=== PATIENT | male | born 1945 | race Caucasian/White ===

== ENCOUNTER → 2017-04-30 | Day surgery (SDC) | payer MEDICARE, OTHER ==
[2017-04-29 12:04] LABS: BASOPHILS % 0.6 % (0.0-1.0); EOSINOPHILS # (AUTO) 0.2 (0.0-0.4); EOSINOPHILS % 2.4 % (0.0-6.0); HEMATOCRIT 41.9 % (38.2-49.6); HEMOGLOBIN 13.7 g/dL (14.0-18.0); LYMPHOCYTES % 28.6 % (18.0-39.1); MEAN CORPUSCULAR HEMOGLOBIN 31.7 pg (28-32); MEAN CORPUSCULAR HGB CONC 32.7 g/dL (31-35); MONOCYTES # (AUTO) 0.6 (0.2-0.8); MONOCYTES % 9.1 % (4.4-11.3); NEUTROPHILS # (AUTO) 4.2 (2.1-6.9); PLATELET COUNT 263 x10e3/uL (140-360); RED BLOOD COUNT 4.32 x10e6/uL (4.3-5.7); RED CELL DISTRIBUTION WIDTH 13.8 % (11.7-14.4)
[~2017-04-30] MED LIST: AMLODIPINE BESYL5 MG PO; ASPIRIN81 M1 PO; CENTRUM SILVER1 EAC3 PO; CIPRO500 MG PO; DEXAMETHASONE SOD PHOS INJ 4 MG/ML VIAL ONE; DICLOFENAC SODI75 MG PO; FENTANYL CITRATE/PF 100MCG/2 ML INJ ONE; FLAGYL250 MG PO; FLOMAX0.4 MG PO; LEVAQUIN250 MG PO; LEVOFLOXACIN 500MG/D5W 100ML 100 ML IV ONE; LIDOCAINE HCL 2% LOCAL INJ 5 ML SDV VIAL INJ ONE; LOSARTAN POTAS100 MG PO; LOSARTAN-HCTZ1 EAC1 PO; LOW DOSE ASPIRI81 MG PO; MIDAZOLAM HCL 2 MG/2 ML VIAL ONE; NORCO 10MG-325MG1 EA PO; ONDANSETRON HCL INJ 2 MG/ML VIAL ONE; PRESERVISION A1 EACH PO; PRESERVISION T1 EACH PO; PROPOFOL IV EMULSION 10 MG/ML 20 ML VIAL ONE; SEVOFLURANE INHAL SOLN 250 ML PEN BTL ONE; SIMVAST PO; SIMVASTATIN10 MG PO; SIMVASTATIN20 MG PO; TAMSULOSIN HCL0.4 MG PO; UROCIT-K10 MEQ PO; UROCIT-K5 MEQ; XARELTO10 MG PO; Z.0.NORVASC5 MG PO
--- NOTE | 2017-04-30 09:57 | Diagnostic Imaging Report ---
PROCEDURE:X-RAY ABDOMEN - KUB COMPARISON:[facility], DX, ABDOMEN-1VIEW (KUB), 02/23/[address] abdomen and pelvis dated 12/15/2016. INDICATIONS:PRE-OP KIDNEY STONE FINDINGS: No change in the small right renal interpolar stone. There are no dilated loops of bowel to suggest obstruction. There are no masses. There is no evidence of free air. No acute osseous abnormalities are present. Left femoral prosthesis is partially visualized. Degenerative changes of the spine. CONCLUSION: Right renal lithiasis. Mykel Garcia D.O. Dictated by: Mykel Garcia D.O. on 04/30/2017 at 10:03 Electronically approved by: Mykel Garcia D.O. on 04/30/2017 at 10:03
--- NOTE | 2017-06-08 00:57 | Operative Report ---
DATE OF PROCEDURE: April 30, 2017 PREOPERATIVE DIAGNOSIS: Right nephrolithiasis. POSTOPERATIVE DIAGNOSIS: Right nephrolithiasis. OPERATIONS PERFORMED 1. Extracorporeal shockwave lithotripsy to the 5-mm lower caliceal stone on the right hand side (separate staged procedure as part of a multistage, multistep process in managing the patient's urolithiasis. 2. Supervision of fluoroscopy. No radiologist present. ANESTHESIA: General. COMPLICATIONS: None. CLINICAL SUMMARY: Elba Henson is a 72-year-old man with a stone. He wants it pulverized so he may pass it. He is aware of the risks of bleeding, infection, injury to adjacent structures, need for additional procedures and elected to proceed. OPERATIVE PROCEDURE IN DETAIL: Informed consent was verified. Elba Henson was properly identified, taken to the operating room, taken to the lithotripsy table where he was placed in supine position. Anesthesia was uneventfully begun. The patient's right nephrolithiasis was localized with planar fluoroscopy. A total of 3000 shocks were delivered with excellent fragmentation. The patient was then uneventfully reversed from anesthesia and taken to the recovery room in stable condition. There were not complications during the procedure. He tolerated the procedure well. Explicit postoperative instructions were given. We will follow the patient up in the office. Job#: [id number] GE cc:KADEN NIXON MD
== END | disposition home or self-care (01) ==
LOC: OR 09:12
PROVIDERS: ATTEND Urology
DX: N20.0 Calculus of kidney (principal); I10 Essential (primary) hypertension; R00.1 Bradycardia, unspecified; Z01.810 Encounter for preprocedural cardiovascular examination; Z01.812 Encounter for preprocedural laboratory examination
CPT/HCPCS: 36415; 50590; 74000; 85025; 93005; J1100; J1956; J2001; J2250; J2405

== ENCOUNTER → 2017-11-22 | Outpatient (CLI) | payer MEDICARE, OTHER ==
[~2017-11-22] MED LIST changes: -DEXAMETHASONE SOD PHOS INJ 4 MG/ML VIAL ONE; -FENTANYL CITRATE/PF 100MCG/2 ML INJ ONE; -LEVOFLOXACIN 500MG/D5W 100ML 100 ML IV ONE; -LIDOCAINE HCL 2% LOCAL INJ 5 ML SDV VIAL INJ ONE; -MIDAZOLAM HCL 2 MG/2 ML VIAL ONE; -ONDANSETRON HCL INJ 2 MG/ML VIAL ONE; -PROPOFOL IV EMULSION 10 MG/ML 20 ML VIAL ONE; -SEVOFLURANE INHAL SOLN 250 ML PEN BTL ONE
--- NOTE | 2017-11-22 13:19 | Diagnostic Imaging Report ---
PROCEDURE:X-RAY ABDOMEN - KUB COMPARISON:KUB 06/02/2017. 04/30/2017. CT abdomen and pelvis 12/15/2016. INDICATIONS:RENAL CALCULUS FINDINGS: There are no dilated loops of bowel to suggest obstruction. Bowel sutures in the right colon. There are no abnormal masses. There is no evidence of free air. No acute osseous abnormalities are present. Left total hip arthroplasty. Degenerative changes in the lumbar spine. Stable 2-3 mm radiopaque density projecting in the interpolar region of the right kidney. No radiopaque densities projecting over the left renal shadow or the course of bilateral ureters or bladder. CONCLUSION: Unchanged 2-3 mm right renal stone. Dictated by: Rikki Murphy M.D. on 11/22/2017 at 13:21 Electronically approved by: Rikki Murphy M.D. on 11/22/2017 at 13:21
== END ==
LOC: RAD 12:21
PROVIDERS: ATTEND Urology
DX: N20.0 Calculus of kidney (principal)
CPT/HCPCS: 74018

== ENCOUNTER → 2018-05-23 | Outpatient (CLI) | payer MEDICARE, OTHER ==
--- NOTE | 2018-05-23 14:48 | Diagnostic Imaging Report ---
Exam: Abdominal film Clinical History: Renal stents Comparison: Abdominal radiograph 01/15/2017 DISCUSSION: Radiopaque suture material projects over the right hemiabdomen. No suspicious calcifications project over the renal shadows or expected ureteral courses though evaluation of the renal shadows is limited by overlying bowel contents. Multiple round lucent centered pelvic calcifications are again noted compatible with phleboliths. Bowel gas pattern is nonobstructive. No mass effect or organomegaly. Total left hip arthroplasty. Degenerative disc changes of the lumbar spine. IMPRESSION: No plain film evidence of nephrolithiasis. Signed by: Dr. Junior Jurado M.D. on 05/23/2018 2:45 PM
== END ==
LOC: RAD 13:39
PROVIDERS: ATTEND Urology
DX: N20.0 Calculus of kidney (principal)
CPT/HCPCS: 74018

== ENCOUNTER → 2018-11-03 | Outpatient (CLI) | payer MEDICARE, OTHER ==
--- NOTE | 2018-11-03 15:13 | Diagnostic Imaging Report ---
EXAM: ABDOMEN-1VIEW (KUB) DATE: 11/03/2018 2:22 PM INDICATION: ^[id number] ^1400 ^Personal history of urinary calculi COMPARISON: KUB, 05/23/2018 FINDINGS: Supine views of the abdomen show a normal distribution of air in the small and large bowel. There is moderate retained stool in the colon. Left hip arthroplasty hardware again partially visualized. Radiopaque material and stool in the colon partially obscures the kidneys. No abnormal calcification is seen over the expected areas of the urinary tract. Phleboliths are again noted in the pelvis. IMPRESSION: 1. No bowel dilatation or evidence for bowel obstruction. 2. No urinary tract calcifications are seen. There is stool and radiopaque material in the colon which partially obscures the kidneys and urinary bladder. Signed by: Dr. Angel Luis Richmond M.D. on 11/03/2018 3:09 PM
== END ==
LOC: RAD 14:10
PROVIDERS: ATTEND Urology
DX: Z87.442 Personal history of urinary calculi (principal)
CPT/HCPCS: 74018

== ENCOUNTER → 2019-05-09 | Outpatient (CLI) | payer MEDICARE, OTHER ==
--- NOTE | 2019-05-09 12:39 | Diagnostic Imaging Report ---
Abdomen, one view on 2 radiographs Clinical indications: Kidney calculus Comparison: 11/03/2018, 05/23/2018 Findings: No radiopaque renal calculi are identified. Phleboliths are present in the pelvis. Patient is status post left total hip arthroplasty. The bowel gas pattern is nonobstructive. Impression: No radiographic evidence of nephroureterolithiasis. Signed by: Ivan Sanches MD on 05/09/2019 12:36 PM
== END ==
LOC: RAD 11:50
PROVIDERS: ATTEND Urology
DX: N20.0 Calculus of kidney (principal)
CPT/HCPCS: 74018

== ENCOUNTER → 2019-11-07 | Outpatient (CLI) | payer MEDICARE, OTHER ==
--- NOTE | 2019-11-07 14:17 | Diagnostic Imaging Report ---
TECHNIQUE: 2 frontal images of the abdomen. HISTORY: ^CALCULUS OF KIDNEY. COMPARISON: None. IMPRESSION: Nonobstructive radiographic bowel gas pattern. No acute bony abnormality. No free air within the imaged abdomen. Pelvic phleboliths. No radiographic evidence of renal calculi. Radiographs are relatively insensitive for the detection of renal calculi. Consider CT if there is clinical concern. Signed by: Marvin Fleming MD on 11/07/2019 2:13 PM
== END ==
LOC: RAD 13:04
PROVIDERS: ATTEND Urology
DX: N20.0 Calculus of kidney (principal)
CPT/HCPCS: 74018

== ENCOUNTER → 2020-05-07 | Outpatient (CLI) | payer MEDICARE, OTHER | LOC: RAD 12:17 | PROVIDERS: ATTEND Urology | DX: N20.0 Calculus of kidney (principal) | CPT/HCPCS: 74018 ==

== ENCOUNTER → 2021-05-28 | Outpatient (CLI) | payer MEDICARE, OTHER | LOC: RAD 10:03 | PROVIDERS: ATTEND Urology | DX: N20.0 Calculus of kidney (principal) | CPT/HCPCS: 74018 ==

== ENCOUNTER → 2021-10-22 | Outpatient (CLI) | payer MEDICARE, OTHER | LOC: RAD 15:32 | PROVIDERS: ATTEND Urology | DX: N20.0 Calculus of kidney (principal) | CPT/HCPCS: 74018 ==